=== PATIENT | male | born 1980 | race Caucasian/White ===

== ENCOUNTER 2020-11-29 20:00 | Outpatient (CLI) | payer OTHER, SELFPAY | END 2020-11-29 20:01 | disposition home or self-care (01) | LOC: SLEEP 11-30 08:54 | PROVIDERS: PCP Emergency Medicine Emergency Medical Services; Visit Provider Emergency Medicine Emergency Medical Services | DX: G47.30 Sleep apnea, unspecified (principal) | CPT/HCPCS: 95811 ==

== ENCOUNTER 2021-09-24 00:29 | Observation (INO) | payer OTHER, SELFPAY ==
[2021-09-24] VITALS (22 sets, daily range): BP systolic 91–124; BP diastolic 63–78; PULSE 69–103; RESP 16–20; TEMP 36.6–38.6; O2SAT 81–100; BMI 25.5
--- NOTE | 2021-09-24 00:49 | CTR_ITS ---
PROCEDURE INFORMATION: Exam: CT Abdomen And Pelvis With Contrast Exam date and time: 09/24/2021 12:49 AM Age: 41 years old Clinical indication: Abdominal pain; Localized; Right lower quadrant (rlq); Patient HX: Rlq pain with low grade fever. ; Additional info: Severe abd pain TECHNIQUE: Imaging protocol: Computed tomography of the abdomen and pelvis with contrast. Radiation optimization: All CT scans at this facility use at least one of these dose optimization techniques: automated exposure control; mA and/or kV adjustment per patient size (includes targeted exams where dose is matched to clinical indication); or iterative reconstruction. Contrast material: OMNI 300; Contrast volume: 95 ml; Contrast route: INTRAVENOUS (IV); COMPARISON: No relevant prior studies available. RADIATION DOSE METRICS: Total DLP (mGy-cm): 1230.05 FINDINGS: Liver: Normal. No mass. Gallbladder and bile ducts: Normal. No calcified stones. No ductal dilation. Pancreas: Normal. No ductal dilation. Spleen: Normal. No splenomegaly. Adrenal glands: Normal. No mass. Kidneys and ureters: Normal. No hydronephrosis. Stomach and bowel: Distal small bowel loops mildly distended with fluid. Mesenteric fat stranding. Negative for bowel wall pneumatosis. Appendix: Abnormally dilated appendix distended with fluid. Extensive periappendiceal fat stranding. Radiopaque appendicoliths in the proximal aspect. Intraperitoneal space: No loculated intraperitoneal fluid collection. Negative for pneumoperitoneum. Vasculature: Unremarkable. No abdominal aortic aneurysm. Lymph nodes: Unremarkable. No enlarged lymph nodes. Urinary bladder: Unremarkable as visualized. Reproductive: Unremarkable as visualized. Bones/joints: Unremarkable. No acute fracture. Soft tissues: Unremarkable. CT/CT abdomen pelvis w con* [id number] IMPRESSION: Positive for acute appendicitis. Radiation Dose CTDIVOL = (mGy): DLP = 1230.05 (mGy-cm)
--- NOTE | 2021-09-24 00:50 | ED_ITS ---
Documented by User: JUAN FRANCISCO Amos 09/24/21 01:43 HPI - Abdominal Pain General: Chief Complaint: Abdominal Pain Stated Complaint: RLQ Abd Pain Time Seen by Provider: 09/24/21 00:44 History of Present Illness: HPI narrative: Patient states he started with some abdominal pains yesterday in the evening after his Thanksgiving meal. He seemed like he did better throughout the night but then got a lot worse today started his upper abdomen and now it radiated down his right lower quadrant he says pain is 10/10 is never had anything like this before denies any abdominal surgeries are problems. Denies fever vomiting or diarrhea. He said he had 8-10 bowel movements yesterday evening. Small but normal. Does feel nauseous. MD elicited complaint: abdominal pain Pertinent past history: none Onset (ago): hour(s) Pain Consistency: constant Location: RLQ Severity: severe Quality: aching and fullness Radiation: epigastric Migration to: RLQ Exacerbating factors: movement Associated Symptoms: Reports nausea; Denies chills and fever(s) Review of Systems Const: Denies: fever(s), chills or body aches Eyes: Denies: change in vision or blurry vision ENMT: Denies: throat pain or nasal congestion Card: Denies: chest pain or dyspnea on exertion Resp: Denies: dyspnea, productive cough or non-productive cough GI: Reports: abdominal pain and nausea : Denies: difficulty urinating Musc: Denies: extremity pain Skin/Breast: Denies: rash Neuro: Denies: headache(s) Psych: Denies: anxiety or depression Talib/Lymph: Denies: easy bruising PFSH ED PFSH: Medical History Asthma Depression Surgical History History of tooth extraction (~2008) Family History Father Diabetes Mother Cancer Pancreatic [place] Social History Smoking and tobacco status: former smoker Second hand smoke exposure: No Alcohol intake: current Alcohol intake frequency: few times a month Alcohol type: beer Adopted: No Lives independently: Yes Household members: spouse Marital status: service: Yes branch: [employer] Physical Exam Const: COMMON NORMALS: no acute distress, average body habitus and patient oriented x3 HENMT: COMMON NORMALS: normocephalic HEAD & SCALP: normal to inspection and normocephalic FACE & SINUS: normal facial exam Eye: COMMON NORMALS: conjunctivae normal GENERAL EYE: appearance normal, both eyes and all related structures CONJUNCTIVA: Yes conjunctivae normal Neck/C-Spine: COMMON NORMALS: no JVD Chest: COMMONS NORMALS: normal inspection of the chest Resp: COMMON NORMALS: normal respiratory effort and clear to auscultation bilaterally AUSCULTATION: clear to auscultation bilaterally Cardio: COMMON NORMALS: no JVD, regular rate and regular rhythm RATE: regular rate RHYTHM: regular rhythm GI: INSPECTION: Yes normal to inspection AUSCULTATION: Yes Hypoactive bowel sounds present PALPATION: Yes Tenderness to palpation present (GI) Details: LLQ and RLQ PERCUSSION: tympanic to percussion Extremity: COMMON NORMALS: normal to inspection and full ROM Neuro: COMMON NORMALS: patient oriented x3 Course Vital Signs: Vital signs: Vital Signs Temperature 99.7 F H 09/24/21 00:37 Pulse Rate 88 09/24/21 01:13 Respiratory Rate 20 H 09/24/21 01:13 Blood Pressure 115/75 09/24/21 01:13 Pulse Oximetry 100 09/24/21 01:11 MDM - Abdominal Pain MDM Narrative: Medical decision making narrative: I spoke with Dr. Mccann asked we admit patient to observation. Says Sylvia is okay for antibiotic. Care transferred over to Dr. Coy. Lab Data: Labs: Lab Results 09/24/21 09/24/21 00:50 00:50 WBC 15.4 10^3/uL H 10 ^3/uL (4.0-10.0) RBC 5.41 10^6/uL H 10 ^6/uL (4.1-5.3) Hgb 15.6 g/dL g/dL (11.7-16.6) Hct 46.0 % % (42.0-52.0) MCV 85.0 fl fl (80-94) MCH 28.8 pg pg (28.0-34.0) MCHC 33.9 g/dL g/dL (30.0-36.0) RDW 12.4 % % (12.1-15.1) Plt Count 249 10^3/cmm 10^3 /cmm (130-400) MPV 9.8 fL fL (7.4-10.4) Neut % (Auto) 82.6 % % Lymph % (Auto) 10.3 % % [place] % (Auto) 6.2 % % Eos % (Auto) 0.2 % % Baso % (Auto) 0.2 % % Neut # (Auto) 12.72 10^3/uL H 1 0^3/uL (1.8-7.7) Lymph # (Auto) 1.6 10^3/uL 10^3/ uL (0.8-4.8) [place] # (Auto) 1.0 10^3/uL H 10^ 3/uL (0.2-0.9) Eos # (Auto) 0.0 10^3/uL 10^3/ uL (0.0-0.8) Baso # (Auto) 0.0 10^3/uL 10^3/ uL (0.0-0.1) Nucleated RBC % (a uto) 0 % % Nucleated RBCs # 0.0 /100WBC /100W BC Sodium 133 mmol/L L mmol /L (136-145) Potassium 3.7 mmol/L mmol/L (3.5-5.1) Chloride 97 mmol/L L mmol/ L (98-107) Carbon Dioxide 19 mmol/L L mmol/ L (22-29) Anion Gap 20.7 H (5-19) BUN 7 mg/dL mg/dL (6-20) Creatinine 1.0 mg/dL mg/dL (0.7-1.2) GFR Calculation 81.6 mL/min L mL/ min (90-130) Glucose 120 mg/dL H mg/dL (65-115) Calculated Osmolal ity 275 mOsm/kg L mOs m/kg (285-295) Calcium 8.8 mg/dL mg/dL (8.5-10.5) Total Bilirubin 0.6 mg/dL mg/dL (0.15-1.2) AST 11 U/L U/L (0-40) ALT 17 U/L U/L (0-41) Alkaline Phosphata se 21 IU/L L IU/L (40-130) Total Protein 6.5 g/dL L g/dL (6.6-8.7) Albumin 4.6 g/dL g/dL (3.5-5.2) Globulin 1.9 g/dL g/dL (1.3-4.6) Lipase 18 U/L U/L (13-60) Discharge Plan Discharge Prescriptions: No Action Zyrtec 10 mg capsule 10 mg PO DAILY RF: 0 naproxen 500 mg tablet 500 mg PO BID RF: 0 acetaminophen [Tylenol] 325 mg capsule 325 mg PO QID PRNRF: 0 albuterol sulfate 90 mcg/actuation aero powdr breath act w/sensor 2 inh INHALATION QID RF: 0 budesonide-formoterol [Symbicort] 160-4.5 mcg/actuation HFA aerosol inhaler 2 puff INHALATION BID RF: 0 silver sulfadiazine [Silvadene] 1 % cream 1 applic TOPICAL BID Qty: 50 RF: 0 Coding Level of Care Code ED Squeak Rattle And Leak Repairer for Chg Fwd Exam Comprehensive Documented by User: Samy Coy DO 09/24/21 02:18 HPI - Abdominal Pain General: Chief Complaint: Abdominal Pain Stated Complaint: RLQ Abd Pain Time Seen by Provider: 09/24/21 00:44 [facility] [place] ED PFSH: Medical History Asthma Depression Surgical History History of tooth extraction (~2008) Family History Father Diabetes Mother Cancer Pancreatic [place] Social History Smoking and tobacco status: former smoker Second hand smoke exposure: No Alcohol intake: current Alcohol intake frequency: few times a month Alcohol type: beer Adopted: No Lives independently: Yes Household members: spouse Marital status: service: Yes branch: [employer] Course Vital Signs: Vital signs: Vital Signs Temperature 99.7 F H 09/24/21 00:37 Pulse Rate 88 09/24/21 01:13 Respiratory Rate 20 H 09/24/21 01:13 Blood Pressure 115/75 09/24/21 01:13 Pulse Oximetry 100 09/24/21 01:11 MDM - Abdominal Pain MDM Narrative: Medical decision making narrative: This patient was originally seen by JUAN FRANCISCO Roa. I agree with his history, evaluation, and treatment. Lab Data: Labs: Lab Results 09/24/21 09/24/21 00:50 00:50 WBC 15.4 10^3/uL H 10 ^3/uL (4.0-10.0) RBC 5.41 10^6/uL H 10 ^6/uL (4.1-5.3) Hgb 15.6 g/dL g/dL (11.7-16.6) Hct 46.0 % % (42.0-52.0) MCV 85.0 fl fl (80-94) MCH 28.8 pg pg (28.0-34.0) MCHC 33.9 g/dL g/dL (30.0-36.0) RDW 12.4 % % (12.1-15.1) Plt Count 249 10^3/cmm 10^3 /cmm (130-400) MPV 9.8 fL fL (7.4-10.4) Neut % (Auto) 82.6 % % Lymph % (Auto) 10.3 % % [place] % (Auto) 6.2 % % Eos % (Auto) 0.2 % % Baso % (Auto) 0.2 % % Neut # (Auto) 12.72 10^3/uL H 1 0^3/uL (1.8-7.7) Lymph # (Auto) 1.6 10^3/uL 10^3/ uL (0.8-4.8) [place] # (Auto) 1.0 10^3/uL H 10^ 3/uL (0.2-0.9) Eos # (Auto) 0.0 10^3/uL 10^3/ uL (0.0-0.8) Baso # (Auto) 0.0 10^3/uL 10^3/ uL (0.0-0.1) Nucleated RBC % (a uto) 0 % % Nucleated RBCs # 0.0 /100WBC /100W BC Sodium 133 mmol/L L mmol /L (136-145) Potassium 3.7 mmol/L mmol/L (3.5-5.1) Chloride 97 mmol/L L mmol/ L (98-107) Carbon Dioxide 19 mmol/L L mmol/ L (22-29) Anion Gap 20.7 H (5-19) BUN 7 mg/dL mg/dL (6-20) Creatinine 1.0 mg/dL mg/dL (0.7-1.2) GFR Calculation 81.6 mL/min L mL/ min (90-130) Glucose 120 mg/dL H mg/dL (65-115) Calculated Osmolal ity 275 mOsm/kg L mOs m/kg (285-295) Calcium 8.8 mg/dL mg/dL (8.5-10.5) Total Bilirubin 0.6 mg/dL mg/dL (0.15-1.2) AST 11 U/L U/L (0-40) ALT 17 U/L U/L (0-41) Alkaline Phosphata se 21 IU/L L IU/L (40-130) Total Protein 6.5 g/dL L g/dL (6.6-8.7) Albumin 4.6 g/dL g/dL (3.5-5.2) Globulin 1.9 g/dL g/dL (1.3-4.6) Lipase 18 U/L U/L (13-60) Discharge Plan Discharge Prescriptions: No Action Zyrtec 10 mg capsule 10 mg PO DAILY RF: 0 naproxen 500 mg tablet 500 mg PO BID RF: 0 acetaminophen [Tylenol] 325 mg capsule 325 mg PO QID PRNRF: 0 albuterol sulfate 90 mcg/actuation aero powdr breath act w/sensor 2 inh INHALATION QID RF: 0 budesonide-formoterol [Symbicort] 160-4.5 mcg/actuation HFA aerosol inhaler 2 puff INHALATION BID RF: 0 silver sulfadiazine [Silvadene] 1 % cream 1 applic TOPICAL BID Qty: 50 RF: 0 Coding Level of Care Code ED Squeak Rattle And Leak Repairer for Chg Fwd Exam Comprehensive
[2021-09-24] MEDS: iohexol 300 mg/mL 100 mL Btl IV (01:02)
[2021-09-24 01:03] LABS: Basophils % 0.2 %; Eosinophils % 0.2 %; Hemoglobin 15.6 g/dL (11.7-16.6); Lymphocytes # 1.6 10^3/uL (0.8-4.8); Lymphocytes % 10.3 %; Mean Corpuscular HGB Conc 33.9 g/dL (30.0-36.0); Mean Corpuscular Hemoglobin 28.8 pg (28.0-34.0); Mean Platelet Volume 9.8 fL (7.4-10.4); Monocytes % 6.2 %; Neutrophils # 12.72 10^3/uL (1.8-7.7); Neutrophils % 82.6 %; Nucleated Red Blood Cells % 0 %; Platelet Count 249 10^3/cmm (130-400); Red Blood Count 5.41 10^6/uL (4.1-5.3); Red Cell Distribution Width 12.4 % (12.1-15.1); White Blood Count 15.4 10^3/uL (4.0-10.0)
[2021-09-24] MEDS: morphine 4 mg/mL SDV 1 mL IVP ×3 (01:14→06:45)
[2021-09-24] MEDS: sodium chloride 0.9% 1,000 ML 999 ML IV (01:14)
[2021-09-24] MEDS: ondansetron 2 mg/ML SDV 2 mL 4 MG IVP (01:15)
[2021-09-24 01:24] LABS: Alanine Aminotransferase 17 U/L (0-41); Albumin Level 4.6 g/dL (3.5-5.2); Alkaline Phosphatase 21 IU/L (40-130); Anion Gap 20.7 (5-19); Aspartate Amino Transferase 11 U/L (0-40); Blood Urea Nitrogen 7 mg/dL (6-20); Calcium 8.8 mg/dL (8.5-10.5); Carbon Dioxide 19 mmol/L (22-29); Chloride 97 mmol/L (98-107); Globulin 1.9 g/dL (1.3-4.6); Glomerular Filtration Rate 81.6 mL/min (90-130); Glucose 120 mg/dL (65-115); Lipase 18 U/L (13-60); Osmolality Calculated 275 mOsm/kg (285-295); Potassium 3.7 mmol/L (3.5-5.1); Sodium 133 mmol/L (136-145); Total Bilirubin 0.6 mg/dL (0.15-1.2); Total Protein 6.5 g/dL (6.6-8.7)
[2021-09-24] MEDS: piperacillin-tazobactam 3.375 GM in sodium chloride 0.9% (plus) 50 ML IV ×3 (02:15→16:12)
--- NOTE | 2021-09-24 03:33 | PC.NURSE ---
ADMIT NOTE Received to floor from ER via wheelchair. Unable to stand up straight with moving to bed. Is alert & oriented. Says pain started on evening and has gotten progressively worse. Says pain has settled into RLQ and is quite tender. Abdomen soft. Thought at first he had just eaten too much Thanksgiving dinner. Has had fever to 101 and nausea without vomiting. Does report several loose BM's this last evening. Is NPO and is aware of plan for OR today. Starting LR at 125ml/hr rate. Received dose of IV Zosyn in the ER. VS check done and RN completing admission assessment. Urinal provided and is aware of needed urine specimen
[2021-09-24] MEDS: lactated ringers 1,000 ML 125 ML IV (04:01)
--- NOTE | 2021-09-24 07:10 | PC.NURSE ---
OR OR here for pt
[2021-09-24] MEDS: fentaNYL 50 mcg/mL INJ 2mL IVP (07:41)
--- NOTE | 2021-09-24 07:44 | ANES.PREANE2 ---
Pre-Anesthetic Assessment Pre-Anesthetic Assessment: Height/Weight: Height 1.78 m Weight 80.739 kg Temp Pulse Resp BP Pulse Ox 101.3 F H 90 18 122/72 91 09/24/21 04:00 09/24/21 04:00 09/24/21 07:41 09/24/21 04:00 09/24/21 07:41 Preop Diagnosis: Appendicitis Proposed Procedure: Operation Date: 09/24/21 09:45 Proposed Procedures p Laparoscopic Appendectomy, possible Open(Not Applicable) - Alex Mccann MD Familial anesthetic complications: None Was Beta Alda taken within 24 hours: N/A Was Clonidine taken within 24 hours: N/A Last intake: Intake Last Liquid Date 09/23/21 Last Solid Date 09/23/21 Social: Social History: No alcohol and No tobacco Comment: former smoker Exam: Pre-Anes Outpt Exam: alert, oriented x 3, clear to auscultation bilaterally and regular rate & rhythm Airway: Cervical ROM: WNL MP: 2 Dentition: Other (no teeth) Pulmonary: Pulmonary: Asthma and COPD GI: GI: GERD Anesthetic Plan: ASA status: 2 Anesthesia: General Risk of > 500 ml blood loss (7ml/kg in children): No Meds/Allergies Current Medications: Current Medications Generic Name Dose Route Start Last Admin Trade Name Freq PRN Reason Stop Dose Admin Fentanyl 50 mcg 09/24/21 07:31 09/24/21 07:41 Fentanyl 50 Mcg/ Ml Inj 2ml IVP 50 mcg Q10M PRN Administration Preop Pain Lactated Ringer's 1,000 mls @ 125 m ls/hr 09/24/21 03:23 09/24/21 04:01 Lactated Ringers IV 125 mls/hr .Q8H ELIZABETH Administration Morphine Sulfate 4 mg 09/24/21 03:23 09/24/21 06:45 Morphine 4 Mg/Ml Sdv 1 Ml IVP 4 mg Q4H PRN Administration SEVERE PAIN PFSH Anesthesia PFSH: Medical History (Updated 09/24/21 @ 02:18 by Samy Coy DO) Asthma Depression Surgical History History of tooth extraction (~2008) Family History Father Diabetes Mother Cancer Pancreatic [place] Social History Smoking and tobacco status: former smoker Second hand smoke exposure: No Alcohol intake: current Alcohol intake frequency: few times a month Alcohol type: beer Adopted: No Lives independently: Yes Household members: spouse Marital status: service: Yes branch: [employer] Data Anesthesia CBC & Chem 7: 09/24/21 00:50 09/24/21 00:50 Other Labs: Laboratory Results - last 48 hr 09/24/21 09/24/21 00:50 00:50 WBC 15.4 H RBC 5.41 H Hgb 15.6 Hct 46.0 MCV 85.0 MCH 28.8 MCHC 33.9 RDW 12.4 Plt Count 249 MPV 9.8 Neut % (Auto) 82.6 Lymph % (Auto) 10.3 [place] % (Auto) 6.2 Eos % (Auto) 0.2 Baso % (Auto) 0.2 Neut # (Auto) 12.72 H Lymph # (Auto) 1.6 [place] # (Auto) 1.0 H Eos # (Auto) 0.0 Baso # (Auto) 0.0 Nucleated RBC % (auto) 0 Nucleated RBCs # 0.0 Sodium 133 L Potassium 3.7 Chloride 97 L Carbon Dioxide 19 L Anion Gap 20.7 H BUN 7 Creatinine 1.0 GFR Calculation 81.6 L Glucose 120 H Calculated Osmolality 275 L Calcium 8.8 Total Bilirubin 0.6 AST 11 ALT 17 Alkaline Phosphatase 21 L Total Protein 6.5 L Albumin 4.6 Globulin 1.9 Lipase 18 Cardiac Studies: No Data to Display
--- NOTE | 2021-09-24 07:51 | P.HP_ITS ---
Providers/Chief Complaint Admitting Physician: Sanna Patel Primary Care Provider: Willy Sanchez DO Chief Complaint: Severe ABD Pain History of Present Illness Niko Arrieta is a 41 year old male who presented to the ER last night with right lower quadrant pain. Patient states that he started having epigastric pain yesterday morning was during the course of the day moved to the right lower quadrant and was localized to the right lower quadrant. The pain is worse with movement. No radiation, no relieving factors. Patient also some fevers and some nausea but denies any vomiting. He had couple of loose bowel movements. No prior abdominal surgeries. Review of Systems General: Reports: 10 or more systems reviewed and unremarkable except in HPI and below Medications/Allergies Home Medications Medication Instructions Recorded Confirmed Last Taken Type acetaminophen 325 mg capsule 325 mg PO QID PRN 04/22/20 04/22/20 Unknown History albuterol sulfate 90 mcg/actuation 2 inh INHALATION QID 04/22/20 04/22/20 Unknown History breath activated powder inhaler,sensor budesonide-formoterol HFA 160 2 puff INHALATION BID 04/22/20 04/22/20 Unknown History mcg-4.5 mcg/actuation aerosol inhaler cetirizine 10 mg capsule 10 mg PO DAILY 04/22/20 04/22/20 Unknown History naproxen 500 mg tablet 500 mg PO BID 04/22/20 04/22/20 Unknown History silver sulfadiazine 1 % topical 1 applic TOPICAL BID #50 gm 04/22/20 04/22/20 Unknown Rx cream Allergies Allergy/AdvReac Type Severity Reaction Status Date / Time No Known Allergies Allergy Verified 04/22/20 11:29 PFSH Acute PFSH: Medical History Asthma Depression Surgical History History of tooth extraction (~2008) Family History Father Diabetes Mother Cancer Pancreatic [place] Social History Smoking and tobacco status: former smoker Second hand smoke exposure: No Alcohol intake: current Alcohol intake frequency: few times a month Alcohol type: beer Adopted: No Lives independently: Yes Household members: spouse Marital status: service: Yes branch: [employer] Vitals/I&O/Wt Last Vital Signs Temp 101.4 F H 09/24/21 07:12 Pulse 102 H 09/24/21 07:12 Resp 18 09/24/21 07:41 BP 124/75 09/24/21 07:12 Pulse Ox 91 09/24/21 07:41 09/23/21 09/24/21 09/24/21 22:59 06:59 14:59 Intake Total 1050 / 1050 Output Total 650 / 650 Balance 1050 / 1050 -650 / -650 Weight last 48 hrs Weight 178 lb Physical Exam Narrative: EXAM NARRATIVE: HEENT: Normocephalic Eye: Sclera /conjunctiva normal Respiratory and chest: Bilateral clear breath sounds on auscultation Cardiovascular: Normal S1 and S2 heart sounds Abdomen: Soft to palpation, tender right lower quadrant, voluntary guarding, no rigidity Neurological: Oriented to place person and time Skin: Intact, no lesions appreciated on gross exam Data : 09/24/21 00:50 09/24/21 00:50 A&P Assessment and plan (1) Acute appendicitis: 41-year-old male who presents generalized abdominal pain which localized to the right lower quadrant last night. This was associated with nausea, diarrhea and fevers. WBC-15.4 CT scan showed acute appendicitis Plan for laparoscopic possible open appendectomy Procedure, risks, benefits and alternatives have been discussed with the patient who wishes to proceed with surgery. Status: Acute Qualifiers: Acute appendicitis type: with localized peritonitis Appendicitis abscess presence: without abscess Appendicitis gangrene presence: without gangrene Appendicitis perforation presence: without perforation Qualified Code(s): K35.30 - Acute appendicitis with localized peritonitis, without perforation or gangrene Attestations Medical Necessity Statement*: Acute appendicitis Coding Level of Care Code Acute Commercial Ret[facility]cher [facility] Diagnoses Acute appendicitis K35.30 Acute appendicitis type: with localized peritonitis Appendicitis abscess presence: without abscess Appendicitis gangrene presence: without gangrene Appendicitis perforation presence: without perforation
--- NOTE | 2021-09-24 09:16 | PM.OP ---
Operative Report Date of procedure: September 24, 2021 Pre-op Diagnosis: Acute appendicitis Post-op Diagnosis: Acute suppurative appendicitis with moderate amount of purulent fluid along the right paracolic gutter and pelvis Procedure Done: Laparoscopic appendectomy Specimens removed/disposition: Appendix Surgeon: Alex Mccann Anesthesia: General Condition: stable Disposition: PACU Procedure: The patient was taken to the Operating Room and intubated under general anesthesia after antibiotic had been administered. Using a 15 blade, a 1-cm infraumbilical incision was made and using open Lu technique, the peritoneal cavity was entered. A 12mm port with balloon was placed and 14 mm of pneumoperitoneum was created and 10-mm 30 degree scope was introduced. Two separate 5mm ports were placed in the left and right lower quadrant under direct visualization. The appendix was noted in the right lower quadrant and appeared acutely inflamed. There was moderate amount of purulent fluid along the right paracolic gutter, pelvis which was irrigated and suctioned out. Using [place] forceps, an opening was made in the mesoappendix near the base of the appendix. An Endo KERRIE stapler 45mm long 3.5mm blue load was introduced to divide the appendix at it's base. Using electrocautery, the mesoappendix including the appendicular artery was divided. There was no bleeding noted and the staple line appeared intact. The right lower quadrant was irrigated with saline and an EndoCatch bag was introduced to remove the appendix. All three ports were removed under direct visualization and there was no bleeding noted on the port sites. 10 0.5% Marcaine was infiltrated at the port sites. The fascia at the umbilical port was closed using figure of eight 0-Vicryl sutures and subcutaneous tissue was approximated using 3-0 Vicryl and skin at all 3 port sites was closed using 4-0 Monocryl and Dermabond. 10cc of 0.5% Marcaine was infiltrated at the port sites.
[2021-09-24] MEDS: D5-NS 0.45% + KCL 20 mEq 20 MEQ/1,000 ML BAG 100 MEQ IV ×2 (10:20→21:35)
--- NOTE | 2021-09-24 11:00 | ANE.PACU2 ---
Inpatient post-anesthesia follow up: Airway intact: Yes Vital signs: Temperature 99.4 F Pulse Rate 85 Respiratory Rate 18 Blood Pressure 114/71 Pulse Oximetry 93 Oxygen Delivery Me thod Room Air Oxygen Flow Rate 6 Fraction of Inspir ed Oxygen Hydration adequate: Yes Nausea and vomiting: No Pain level: 2 Mental status: Baseline
[2021-09-24] MEDS: HYDROcodone-acetaminophen 5-325 mg Tablet 1 TAB PO ×2 (12:28→18:30)
[2021-09-24] MEDS: acetaminophen 325 mg Tablet 650 MG PO (17:33)
[2021-09-24] MEDS: sennosides-docusate Tablet 1 TAB PO (18:06)
[2021-09-25] MEDS: acetaminophen 325 mg Tablet 650 MG PO (00:44)
[2021-09-25] MEDS: piperacillin-tazobactam 3.375 GM in sodium chloride 0.9% (plus) 50 ML IV (00:44)
[2021-09-25 01:01] VITALS: BP 101/62; PULSE 79; RESP 18; TEMP 37.3; O2SAT 91
--- NOTE | 2021-09-25 04:25 | PC.NURSE ---
MANAGER UTILIZATION notified this Nurse that Pt O2 sat was 89%, Nurse went to Patient room to assess patient, Pt denied SOB or any distress, Pt stated he has asthma and requested his Albuterol inhaler at the bedside. PT used inhaler and and Nurse stayed at the bedside until O2 was 92% on RA, Lungs clear to auscultation.
[2021-09-25 04:59] VITALS: BP 107/68; PULSE 70; RESP 16; TEMP 36.9; O2SAT 87
[2021-09-25 05:23] LABS: Basophils % 0.2 %; Hematocrit 41.5 % (42.0-52.0); Hemoglobin 13.6 g/dL (11.7-16.6); Lymphocytes # 1.4 10^3/uL (0.8-4.8); Lymphocytes % 11.3 %; Mean Corpuscular HGB Conc 32.8 g/dL (30.0-36.0); Mean Corpuscular Volume 88.5 fl (80-94); Mean Platelet Volume 10.7 fL (7.4-10.4); Monocytes # 0.6 10^3/uL (0.2-0.9); Neutrophils # 9.97 10^3/uL (1.8-7.7); Neutrophils % 83.1 %; Nucleated Red Blood Cells % 0 %; Platelet Count 199 10^3/cmm (130-400); Red Blood Count 4.69 10^6/uL (4.1-5.3); Red Cell Distribution Width 13.2 % (12.1-15.1)
[2021-09-25] MEDS: D5-NS 0.45% + KCL 20 mEq 20 MEQ/1,000 ML BAG 100 MEQ IV (06:08)
[2021-09-25] MEDS: HYDROcodone-acetaminophen 5-325 mg Tablet 1 TAB PO (06:11)
[2021-09-25 07:49] VITALS: BP 114/71; PULSE 85; RESP 18; TEMP 37.4; O2SAT 93
--- NOTE | 2021-09-25 07:49 | P.DS_ITS ---
Discharge Providers Date of Admission: 09/24/21 03:07 Date of Discharge: September 25, 2021 Attending Provider at Admission: Sanna Patel Attending Provider at Discharge: Alex Mccann MD Primary Care Provider: Willy Sanchez DO Diagnoses at Discharge Discharge Diagnosis (1) Acute appendicitis: Status: Resolved Qualifiers: Acute appendicitis type: with localized peritonitis Appendicitis abscess presence: without abscess Appendicitis gangrene presence: without gangrene Appendicitis perforation presence: without perforation Qualified Code(s): K35.30 - Acute appendicitis with localized peritonitis, without perforation or gangrene Reason for Visit Reason for Visit: Severe ABD Pain Hospital Course Hospital Course Niko Arrieta is a 41 year old male who presented to the ER last night with right lower quadrant pain. Patient states that he started having epigastric pain yesterday morning was during the course of the day moved to the right lower quadrant and was localized to the right lower quadrant. The pain is worse with movement. No radiation, no relieving factors. Patient also some fevers and some nausea but denies any vomiting. He had couple of loose bowel movements. No prior abdominal surgeries. He was admitted to the hospital and underwent laparoscopic appendectomy. There was moderate amount of purulent fluid noted in the peritoneal cavity and therefore he was kept overnight for IV antibiotics. At time of discharge patient has been afebrile vital signs are stable and he is tolerating a liquid diet. His incision is clean dry and intact Discharge Data Data Completed and Pending: Completed Studies During Hospitalization Category Date Time Status CT abdomen pelvis w con* [id number] Stat Cat Scan 09/24/21 00:49 Completed Pending at discharge Category Date Time Status Pathology: Surgic al [PTH] Routine Pth 09/24/21 08:32 Ordered Labs from last 24 hours 09/25/21 04:17 WBC 12.0 H RBC 4.69 Hgb 13.6 Hct 41.5 L MCV 88.5 MCH 29.0 MCHC 32.8 RDW 13.2 Plt Count 199 MPV 10.7 H Neut % (Auto) 83.1 Lymph % (Auto) 11.3 [place] % (Auto) 5.0 Eos % (Auto) 0.0 Baso % (Auto) 0.2 Neut # (Auto) 9.97 H Lymph # (Auto) 1.4 [place] # (Auto) 0.6 Eos # (Auto) 0.0 Baso # (Auto) 0.0 Nucleated RBC % (a uto) 0 Nucleated RBCs # 0.0 Vitals: Last Vital Signs Temp 98.4 F 09/25/21 04:59 Pulse 70 09/25/21 04:59 Resp 16 09/25/21 04:59 BP 107/68 09/25/21 04:59 Pulse Ox 87 L 09/25/21 04:59 Discharge Plan Discharge Patient Disposition: Home Condition: Stable Prescriptions: New hydrocodone-acetaminophen 5-325 mg tablet 1 tab PO Q6H PRN (Reason: pain) Qty: 20 RF: 0 levofloxacin 750 mg tablet 750 mg PO DAILY 7 Days Qty: 7 RF: 0 metronidazole [Flagyl] 500 mg tablet 500 mg PO Q8H 7 Days Qty: 21 RF: 0 ondansetron HCl [Zofran] 4 mg tablet 4 mg PO Q6H PRN (Reason: nausea and vomiting) Qty: 20 RF: 0 sennosides-docusate sodium [Senna with Docusate Sodium] 8.6-50 mg tablet 1 tab-cap PO BID Qty: 30 RF: 0 Continued Zyrtec 10 mg capsule 10 mg PO DAILY RF: 0 naproxen 500 mg tablet 500 mg PO BID RF: 0 acetaminophen [Tylenol] 325 mg capsule 325 mg PO QID PRN (Reason: Pain) RF: 0 albuterol sulfate 90 mcg/actuation aero powdr breath act w/sensor 2 inh INHALATION QID PRN (Reason: Shortness Of Breath) RF: 0 budesonide-formoterol [Symbicort] 160-4.5 mcg/actuation HFA aerosol inhaler 2 puff INHALATION BID RF: 0 melatonin 3 mg Tablet 9 mg PO DAILY RF: 0 pantoprazole 20 mg Tablet,Delayed Release (Dr/Ec) 20 mg PO DAILY RF: 0 prazosin 5 mg Capsule 5 mg PO QPM RF: 0 rosuvastatin 10 mg Tablet 10 mg PO DAILY RF: 0 Discharge Orders: Discharge Order (Routine); Ordered 09/25/21 Ordered By: Alex Mccann Referrals: Alex Mccann MD [Physician] - 2 weeks Willy Sanchez DO [Primary Care Provider] - Patient Instructions: Opioid Safety Activity Restrictions/Additional Instructions: Diet Advance to normal diet as tolerated, increase fluid intake as much as possible. Activity Avoid strenuous activity for 2 weeks but continue with daily activities including walking as tolerated. Do not lift more than 10 pounds for 2 weeks Return to work/school You can return to work/ school whenever you feel ready as long as you don?t have to lift more than 10 pounds at work. If you have paperwork that needs to be completed for time off from work, please contact my office Driving You can resume driving once you stop using narcotic pain medications, and transition to non-opioid pain medications like Tylenol, Motrin, Aleve, etc. Medications Pain Take opioid pain medications as prescribed and transition to non-opioid pain medications like Tylenol, Motrin, Aleve etc. over the next few days. The goal of the pain medications is to make the pain bearable and not to be pain free since you recently had surgery. Resume all home medications after surgery as per the medication reconciliation list Nausea Nausea is common after surgery, take nausea medications as needed and stay on a liquid bland diet until nausea resolves. Constipation The combination of surgery, anesthesia and pain medications can result in constipation. Take stool softeners as prescribed. If you do not have a bowel movement in 3 days, please take an ypxo-mxq-pknelza laxative like MiraLAX to address the constipation. Shower It is ok to shower but avoid getting the wound wet for 48 hours after surgery. Do not soak in bathtub, swimming pool or hot tub for 2 weeks. Wound care If glue has been used on your incisions after surgery, the glue on the incision will peel slowly over the next two weeks. The stitches used are dissolvable and will not need to be removed. Do not apply antibiotics or other medications on the incision Problems with the wound: you can develop some redness around the incision from bruising after surgery. If there is increasing pain, redness, tenderness around the incision with or without drainage, please contact my office to rule out an infection. Sometimes the skin at the incisions can separate, resulting in reopening of the wound. Cover the wound with antibiotic cream and sterile dressings and contact suly ferguson. Contact physician Call the office at [phone] during office hours or go the Emergency Room ?Fever to 100.4 or greater ?Shaking chills ?Pain that increases over time ?Redness, warmth, or pus draining from incision sites ?Persistent nausea or inability to take in liquids Discharge Attestations Time Spent in Discharge Care*: less than 30 min Quality Metrics Clinical Quality Measures During this hospital stay, did patient experience: None Coding Level of Care Code Acute Chg FW DC note Diagnoses Acute appendicitis K35.30 Acute appendicitis type: with localized peritonitis Appendicitis abscess presence: without abscess Appendicitis gangrene presence: without gangrene Appendicitis perforation presence: without perforation
[2021-09-25] MEDS: sennosides-docusate Tablet 1 TAB PO (09:38)
[2021-09-25] MEDS: ondansetron 2 mg/ML SDV 2 mL 4 MG IVP (09:39)
[2021-09-25 10:40] VITALS: BP 114/71; PULSE 85; RESP 18; TEMP 37.4; O2SAT 93
== END 2021-09-25 10:30 | disposition home or self-care (01) ==
LOC: ER 02:20 → MEDSURG 03:11
PROVIDERS: Nurse Practitioner Family; Admitting Provider Hospitalist; Emergency Provider Emergency Medicine; PCP Emergency Medicine Emergency Medical Services; Visit Provider Surgery
PROC: 0DTJ4ZZ Resection of Appendix, Percutaneous Endoscopic Approach (ICD-10-PCS; CPT 44970; principal; 2021-09-24 09:25)
DX: K35.30 Acute appendicitis with localized peritonitis, without perforation or gangrene (principal); J44.9 Chronic obstructive pulmonary disease, unspecified; K21.9 Gastro-esophageal reflux disease without esophagitis; F32.A Depression, unspecified; Z87.891 Personal history of nicotine dependence
CPT/HCPCS: 44970; 36415; 74177; 80053; 83690; 85025; 88304; 96365; 96375; 96376; 99285; G0378; J1100; J2270; J2405; J2543; J2704; J2710; J3010; J3490; J7030; Q9967

== ENCOUNTER → 2022-06-26 14:14 | Outpatient (BNVA) | payer OTHER, SELFPAY | PROVIDERS: PCP Emergency Medicine Emergency Medical Services; Visit Provider Surgery | DX: K64.9 Unspecified hemorrhoids (principal) | CPT/HCPCS: 99203; 99213 ==

== ENCOUNTER 2022-07-18 09:38 | Day surgery (SDC) | payer OTHER, SELFPAY ==
[2022-07-17 12:12] VITALS: BMI 25.8
--- NOTE | 2022-07-18 10:19 | P.ANESASSM_ITS ---
Pre-Anesthetic Assessment Height/Weight: Height 1.78 m Weight 81.647 kg Preop Diagnosis: Acute appendicitis Operation Date: 07/18/22 12:15 Proposed Procedures p colonoscopy with exam under anesthesia with possible hemorrhoidectomy 96331,[id number],K64.9(Not Applicable) - Ludwin Alvarado MD s Possible Hemorroidectomy(Not Applicable) - Ludwin Alvarado MD Familial anesthetic complications: None Was Beta Alda taken within 24 hours: N/A Was Clonidine taken within 24 hours: N/A Last intake: 07/17/22 Social No alcohol and No tobacco Exam alert, oriented x 3, clear to auscultation bilaterally and regular rate & rhythm Airway Submandibular: within normal limits Cervical ROM: within normal limits Mallampati: Class I Dentition: full History/ROS No significant complaints Pulmonary Asthma and Sleep Apnea (Not treated ) CV/HEM None reported None reported Hepatic None reported GI Gastroesophageal Reflux Disease (Diet related ) Bleeding hemorrhoid Metabolic Hyperlipidemia Musc/skel None reported Neuropsych Depression Anesthetic Plan ASA status: 3 (42 year old male with untreated KIRSTEN, asthma, DLD, depression ) Anesthesia: Anesthesia Evaluation, General and MAC Other: I discussed with the patient risks, goals, and benefits of MAC and general anesthesia. We discussed spectrum of MAC anesthesia including conversion to general as well as possibility of recall of intraoperative stimuli including discomfort/pain. Patient agrees to proceed with MAC. Risk of > 500 ml blood loss (7ml/kg in children): No Medications/Allergies Home Medications Medication Instructions Recorded Confirmed Last Taken Type acetaminophen 325 mg capsule 325 mg PO QID PRN Pain 04/22/20 07/18/22 07/11/22 History (Tylenol) albuterol sulfate 90 mcg/actuation 2 inh inhalation QID PRN Shortness 04/22/20 07/18/22 07/18/22 08:00 History breath activated powder Of Breath inhaler,sensor budesonide-formoterol HFA 160 2 puff inhalation BID 04/22/20 07/18/22 07/18/22 08:00 History mcg-4.5 mcg/actuation aerosol inhaler (Symbicort) cetirizine 10 mg capsule (Zyrtec) 10 mg PO DAILY 04/22/20 07/18/22 07/17/22 History naproxen 500 mg tablet 500 mg PO BID 04/22/20 07/18/22 07/11/22 History melatonin 3 mg tablet 9 mg PO DAILY 09/24/21 07/18/22 07/17/22 History pantoprazole 20 mg tablet,delayed 20 mg PO DAILY 09/24/21 07/18/22 07/17/22 History release prazosin 5 mg capsule 5 mg PO QPM 09/24/21 07/18/22 07/17/22 History rosuvastatin 10 mg tablet 10 mg PO DAILY 09/24/21 07/18/22 07/17/22 History peg 3350-electrolytes 236 240 ml PO Q10M #4,000 mL 07/10/22 07/18/22 07/17/22 Rx gram-22.74 gram-6.74 gram-5.86 gram solution (Golytely) Allergies Allergy/AdvReac Type Severity Reaction Status Date / Time No Known Allergies Allergy Verified 07/18/22 10:24 [facility] Anesthesia Medical History (Updated 07/18/22 @ 11:24 by Pari Townsend DO) Asthma Depression KIRSTEN (obstructive sleep apnea) Does not use CPAP Surgical History History of tooth extraction (~2008) S/P laparoscopic appendectomy (09/24/21) Family History Father Diabetes Mother Cancer Pancreatic [place] Social History Smoking and tobacco status: former smoker Second hand smoke exposure: No Alcohol intake: current Alcohol intake frequency: few times a month Alcohol type: beer Adopted: No Lives independently: Yes Household members: spouse Marital status: service: Yes branch: [employer] Data Anesthesia Cardiac Studies: No Data to Display
[2022-07-18 10:27] VITALS: BP 156/93; PULSE 62; RESP 18; TEMP 36.6; O2SAT 96
[2022-07-18] MEDS: sodium chloride 0.9% 1,000 ML 30 ML IV (10:56)
[2022-07-18] MEDS: acetaminophen 1,000 MG/100 ML PIGGYBACK 400 MG IV (10:57)
--- NOTE | 2022-07-18 13:08 | W.PM.OPSUD ---
Surgery/Procedure H&P Update DATE OF PROCEDURE: July 18, 2022 DATE H&P PERFORMED: 06/26/22 H&P UPDATE INFORMATION: I have reviewed H&P completed within last 30 days, I have examined patient prior to procedure and No changes to prior documentation PREOP DIAGNOSIS: Acute appendicitis PRIMARY INDICATION FOR PROCEDURE: The same PLANNED PROCEDURE: Operation Date: 07/18/22 12:15 Proposed Procedures p colonoscopy with exam under anesthesia with possible hemorrhoidectomy [id number],[id number],K64.9(Not Applicable) - Ludwin Alvarado MD s Possible Hemorroidectomy(Not Applicable) - Ludwin Alvarado MD
[2022-07-18] MEDS: piperacillin-tazobactam 3.375 GM in sodium chloride 0.9% (plus) 50 ML IV (13:15)
--- NOTE | 2022-07-18 14:03 | PM.OP ---
Operative Report Date of procedure: July 18, 2022 Pre-op diagnosis: Preop Diagnosis bleeding per rectum Post-op findings: Rectosigmoid polyps and anterior skin tag Procedure done: 1-Colonoscopy with polypectomy using hot snare and application of Endo Clip x1 at the rectum 2-Examination under anesthesia with excision of anterior skin tag Implants: Surgicel and Xeroform Specimens removed/disposition: Multiple rectal polyps Anterior skin tag Surgeon: Ludwin Alvarado MD Anesthesia: MAC (OPTICS TECHNICAL OFFICER Benny Poe and OPTICS TECHNICAL OFFICER Enrrique student) Estimated blood loss (mL): 5 Procedure: Patient was identified in the holding area, was taken to the OR placed first in supine position,IV antibiotics were given with induction time-out was done verifying the patient's name, date of , and procedure, all were in agreement. General anesthetic was administered by the anesthesia provider, patient was placed in left lateral position SCDs were on and functioning. And all pressure points were padded Perianal examination showed anterior skin tag ,otherwise no evidence of clinically palpable anal masses. Following that a digital rectal examination was done was normal, the colonoscope was then introduced via the anus under direct visualization, all the way to the proximal to the cecum, a polyp was appreciated at the distal sigmoid and a hot snare polypectomy was applied but was not retrieved. 3 additional polyps were found in the rectum and a hot snare was used followed by Endo Clip x1. The prep was adequate. Rectal polyps were retrieved. I was able to reach all the way to the cecum no other polyps were identified At this point the scope was then retrieved back, gas was deflated on the way out.Retroflex was done at the end showing showed no evidence of internal hemorrhoids, time to retrieve the scope from the cecum to the anus exceeded 6 minutes Prep and drape of the perineum was done under the usual sterile technique All pressure points were padded,Injection of 10 mL of Exparel at the site of the anterior skin A lubricated self-retaining proctoscope was inserted, no evidence of other pathology. Attention was paid now to the anterior skin tag , were application of hemostat that point,dissection was carried by using the harmonic scalpel, excised tissues were sent for permanent pathology, followed by running 3-0 chromic catgut. Hemostasis was achieved, and a piece of Surgicel and Xeroform was then applied ABDs were applied followed by surgical pants Patient was repositioned to supine position, counts of instruments,needles and sponges were completed at the end of the procedure. Recommend to obtain a surveillance colonoscopy in 3 years I was present for the whole entire procedure
[2022-07-18 14:11] VITALS: BP 103/71; PULSE 96; RESP 16; TEMP 36.4; O2SAT 96
[2022-07-18 14:16] VITALS: BP 109/76; PULSE 66; RESP 16; O2SAT 94
[2022-07-18 14:21] VITALS: BP 119/80; PULSE 63; RESP 16; TEMP 36.2; O2SAT 98
[2022-07-18 14:32] VITALS: BP 110/86; PULSE 60; RESP 18; TEMP 36.3; O2SAT 97
[2022-07-18 14:42] VITALS: BP 116/83; PULSE 55; RESP 18; TEMP 36.7; O2SAT 98
--- NOTE | 2022-07-18 16:19 | ANE.PACU2 ---
Inpatient post-anesthesia follow up: Airway intact: Yes Vital signs: Temperature 98.0 F Pulse Rate 55 Respiratory Rate 18 Blood Pressure 116/83 Pulse Oximetry 98 Oxygen Delivery Me thod Room Air Oxygen Flow Rate 6 Fraction of Inspir ed Oxygen Hydration adequate: Yes Nausea and vomiting: No Pain level: 1 Mental status: Baseline
== END 2022-07-18 14:58 | disposition home or self-care (01) ==
PROVIDERS: PCP Emergency Medicine Emergency Medical Services; Visit Provider Surgery
PROC: 0DJD8ZZ Inspection of Lower Intestinal Tract, Via Natural or Artificial Opening Endoscopic (ICD-10-PCS; CPT 45378; principal; 2022-07-18 12:05)
PROC: (CPT 45385; 2022-07-18 12:05)
DX: K62.5 Hemorrhage of anus and rectum (principal); K21.9 Gastro-esophageal reflux disease without esophagitis; E78.5 Hyperlipidemia, unspecified; F32.A Depression, unspecified; G47.33 Obstructive sleep apnea (adult) (pediatric); M19.90 Unspecified osteoarthritis, unspecified site; Z87.891 Personal history of nicotine dependence
CPT/HCPCS: 45385; 46220; 88304; 88305; C9290; J2543; J2704; J3490; J7030

== ENCOUNTER → 2022-07-26 14:15 | Outpatient (BNVA) | payer OTHER, SELFPAY | PROVIDERS: PCP Emergency Medicine Emergency Medical Services; Visit Provider Surgery | DX: Z09 Encounter for follow-up examination after completed treatment for conditions other than malignant neoplasm (principal); K64.9 Unspecified hemorrhoids; K63.5 Polyp of colon | CPT/HCPCS: 99024 ==

== ENCOUNTER → 2022-09-06 10:01 | Outpatient (BNVA) | payer OTHER, SELFPAY | PROVIDERS: PCP Emergency Medicine Emergency Medical Services; Visit Provider Surgery | DX: Z09 Encounter for follow-up examination after completed treatment for conditions other than malignant neoplasm (principal) | CPT/HCPCS: 99024 ==

== ENCOUNTER → 2022-11-07 10:30 | Outpatient (BNVA) | payer OTHER, SELFPAY | PROVIDERS: PCP Emergency Medicine Emergency Medical Services; Referring Provider Emergency Medicine Emergency Medical Services; Visit Provider Specialist | DX: R20.0 Anesthesia of skin (principal); R20.2 Paresthesia of skin | CPT/HCPCS: 95908; 95909 ==

== ENCOUNTER → 2022-11-20 13:00 | Outpatient (BNVA) | payer OTHER, SELFPAY | PROVIDERS: PCP Emergency Medicine Emergency Medical Services; Referring Provider Emergency Medicine Emergency Medical Services; Visit Provider Student in an Organized Health Care Education/Training Program | DX: M77.10 Lateral epicondylitis, unspecified elbow (principal); R20.0 Anesthesia of skin; R20.2 Paresthesia of skin | CPT/HCPCS: 73070; 99204 ==

== ENCOUNTER → 2024-01-15 08:26 | Outpatient (BNVA) | payer OTHER, SELFPAY | PROVIDERS: PCP Emergency Medicine Emergency Medical Services; Referring Provider Emergency Medicine Emergency Medical Services; Visit Provider Surgery | DX: D17.9 Benign lipomatous neoplasm, unspecified (principal) | CPT/HCPCS: 99203 ==

== ENCOUNTER 2024-01-28 07:14 | Day surgery (SDC) | payer OTHER, SELFPAY ==
[2024-01-28] VITALS (10 sets, daily range): BP systolic 108–122; BP diastolic 64–82; PULSE 59–74; RESP 12–18; TEMP 36.2–36.3; O2SAT 91–100; BMI 24.0
[2024-01-28] MEDS: sodium chloride 0.9% 1,000 ML 30 ML IV (07:50)
--- NOTE | 2024-01-28 08:36 | ANES.PREANE2 ---
Pre-Anesthetic Assessment Height/Weight: Height 1.78 m Weight 76.204 kg Temp Pulse Resp BP Pulse Ox O2 Del Method 97.1 F L 62 18 112/71 98 Room Air 01/28/24 07:36 01/28/24 07:36 01/28/24 07:36 01/28/24 07:36 01/28/24 07:36 01/28/24 07:36 Operation Date: 01/28/24 09:20 Proposed Procedures p Excision Mass/Lesion/Cyst Lower Extremit/excision of right gluteal mass(Right) - Orlando Lopez MD Familial anesthetic complications: None Was Beta Alda taken within 24 hours: N/A Was Clonidine taken within 24 hours: N/A Last intake: Intake Last Liquid Date 01/27/24 Last Liquid Time 22:00 Last Solid Date 01/27/24 Last Solid Time 20:00 Social former smoker Exam alert, oriented x 3, clear to auscultation bilaterally and regular rate & rhythm Airway Mallampati: Class I Dentition: other Pulmonary Asthma, Chronic Obstructive Pulmonary Disease and Sleep Apnea GI Gastroesophageal Reflux Disease Anesthetic Plan ASA status: 3 Anesthesia: Choice Risk of > 500 ml blood loss (7ml/kg in children): No Medications/Allergies Home Medications Medication Instructions Recorded Confirmed Last Taken Type acetaminophen 325 mg capsule 325 mg PO QID PRN Pain 04/22/20 01/25/24 01/25/24 History (Tylenol) albuterol sulfate 90 mcg/actuation 2 inh inhalation QID PRN Shortness 04/22/20 01/25/24 01/28/24 History breath activated powder Of Breath inhaler,sensor cetirizine 10 mg capsule (Zyrtec) 10 mg PO DAILY 04/22/20 01/25/24 01/25/24 History pantoprazole 20 mg tablet,delayed 20 mg PO DAILY 09/24/21 01/25/24 01/25/24 History release amlodipine 2.5 mg tablet 2.5 mg PO BEDTIME 01/15/24 01/25/24 01/26/24 History bupropion HCl 150 mg 24 hr tablet, 150 mg PO DAILY 01/15/24 01/25/24 01/25/24 History extended release cholecalciferol (vitamin D3) 50 50 mcg PO DAILY 01/15/24 01/25/24 01/25/24 History mcg (2,000 unit) tablet (Vitamin D3) escitalopram oxalate 20 mg tablet 20 mg PO DAILY 01/15/24 01/25/24 01/25/24 History fluticasone 100 mcg-salmeterol 50 100 inh inhalation DAILY 01/15/24 01/25/24 01/28/24 History mcg/dose blistr powdr for inhalation (Wixela Inhub) fluticasone propionate 50 50 mcg intranasal DAILY 01/15/24 01/25/24 01/25/24 History mcg/actuation nasal spray,suspension (Aller-Kyle) hydroxyzine HCl 10 mg tablet 10 mg PO TID BLOOD PRESSURE 01/15/24 01/25/24 Unknown History rosuvastatin 40 mg tablet 40 mg PO DAILY 01/15/24 01/28/24 01/26/24 History trazodone 100 mg tablet 100 mg PO ONCE 01/15/24 01/25/24 01/27/24 History tiotropium 2.5 mcg-olodaterol 2.5 2 puff inhalation DAILY 01/28/24 01/28/24 01/28/24 History mcg/actuation mist for inhalation Allergies Allergy/AdvReac Type Severity Reaction Status Date / Time bee venom protein (honey bee) Allergy Severe ALGY-Anaphy Verified 01/25/24 15:18 laxis Current Medications Generic Name Dose Route Start Last Admin Trade Name Freq PRN Reason Stop Dose Admin Sodium Chloride 1,000 mls @ 30 mls/hr 01/28/24 07:30 01/28/24 07:50 Sodium Chloride 0.9% IV 01/29/24 07:29 30 mls/hr .Q24H ELIZABETH Administration PFSH Anesthesia Medical History Lateral epicondylitis of elbow KIRSTEN (obstructive sleep apnea) Does not use CPAP Bleeding hemorrhoid Depression Asthma Surgical History (Updated 01/15/24 @ 08:38 by EDITA [place]) S/P laparoscopic appendectomy (09/24/21) History of tooth extraction (~2008) Family History Father Diabetes Mother Cancer Pancreatic [place] Social History Smoking and tobacco/nicotine status: former use of tobacco/nicotine Second hand smoke exposure: No Alcohol intake: current Alcohol intake frequency: few times a month Alcohol type: beer Substance/Drug Use: never Adopted: No Lives independently: Yes Household members: spouse Marital status: service: Yes branch: [employer] Data Anesthesia Cardiac Studies: No Data to Display
--- NOTE | 2024-01-28 08:59 | W.PM.OPSUD ---
Surgery/Procedure H&P Update DATE OF PROCEDURE: January 28, 2024 DATE H&P PERFORMED: 01/15/24 H&P UPDATE INFORMATION: I have reviewed H&P completed within last 30 days, I have examined patient prior to procedure, No changes to prior documentation and H[place] in [facility] [place] on date indicated PLANNED PROCEDURE: Operation Date: 01/28/24 09:20 Proposed Procedures p Excision Mass/Lesion/Cyst Lower Extremit/excision of right gluteal mass(Right) - Orlando Lopez MD
[2024-01-28] MEDS: ceFAZolin 2,000 MG in sodium chloride 0.9% (plus) 50 ML 100 MG IV (09:18)
[2024-01-28] MEDS: BUPivacaine 0.25% INJ 10 mL INJECTION (09:56)
[2024-01-28] MEDS: lidocaine-epi 1% 20 mL INJ 10 ML INJECTION (09:57)
--- NOTE | 2024-01-28 10:15 | PM.OP ---
Operative Report Date of procedure: January 28, 2024 Pre-op diagnosis: Right gluteal mass Post-op diagnosis: Right gluteal sebaceous cyst Post-op findings: There was a 2 x 2 centimeter right gluteal sebaceous cyst Procedure done: Excision of right gluteal mass Specimens removed/disposition: Right gluteal sebaceous cyst Surgeon: Orlando Lopez MD Bowling Ball Grader: MARTA OR STaff Estimated blood loss: 5 Complications: none Brief History: 43-year-old male with history of right gluteal mass that has been increasing in size over the last couple of years. He presented for excision after discussion of risk benefits as documented in my preop note we decided to proceed. Procedure: Patient was brought into the OR. General esthesia was given. He was placed in the prone position. The skin was prepped and draped in the usual sterile fashion. Timeout was conducted. On the right gluteus there was a 2 x 2 centimeter area that was marked in the preoperative evaluation. I proceeded to infiltrate the area with local anesthesia. I then made the 2.5 cm incision following Jennie lines. The incision was deepened to the subcutaneous tissue. Immediately after accessing the subcutaneous tissue a white shiny capsule was noted. With the use of a hemostat I proceeded to circumferentially dissect this capsule. During dissection a small opening was made to the capsule and sebaceous material was evacuated. With careful sharp dissection I was able to completely excise the capsule from the surrounding tissues. The specimen was passed for pathology. The wound was evaluated for possible residual capsule and none was noted. I then proceeded to irrigate the wound with copious amount of saline. After this hemostasis was obtained. The wound was then closed in layers using #3-0 Vicryl for the subcutaneous tissue and #4 Monocryl for the skin. Dermabond was applied. On top of the Dermabond a compressive dressing was applied. At the end of the procedure all counts were correct, the patient tolerated well the procedure and was transferred to the PACU in stable condition.
--- NOTE | 2024-01-28 11:35 | ANE.PACU2 ---
Inpatient post-anesthesia follow up: Airway intact: Yes Vital signs: Temperature 97.4 F Pulse Rate 60 Respiratory Rate 18 Blood Pressure 113/72 Pulse Oximetry 100 Oxygen Delivery Me thod Room Air Oxygen Flow Rate Fraction of Inspir ed Oxygen Hydration adequate: Yes Nausea and vomiting: No Pain level: 1 Mental status: Baseline
== END 2024-01-28 11:36 | disposition home or self-care (01) ==
PROVIDERS: PCP Emergency Medicine Emergency Medical Services; Visit Provider Surgery
PROC: (CPT 11402; principal; 2024-01-28 09:10)
DX: L72.3 Sebaceous cyst (principal); Z87.891 Personal history of nicotine dependence; J44.9 Chronic obstructive pulmonary disease, unspecified; G47.30 Sleep apnea, unspecified; K21.9 Gastro-esophageal reflux disease without esophagitis; G47.33 Obstructive sleep apnea (adult) (pediatric)
CPT/HCPCS: 11402; 12031; 88307; J0690; J2250; J2704; J2710; J3490; J7030

== ENCOUNTER → 2024-02-19 09:45 | Outpatient (BNVA) | payer OTHER, SELFPAY | PROVIDERS: PCP Emergency Medicine Emergency Medical Services; Visit Provider Surgery | DX: Z09 Encounter for follow-up examination after completed treatment for conditions other than malignant neoplasm (principal) | CPT/HCPCS: 99024 ==

== ENCOUNTER → 2025-08-11 08:16 | Outpatient (BNVA) | payer OTHER, SELFPAY | PROVIDERS: PCP Emergency Medicine Emergency Medical Services; Visit Provider Surgery | DX: Z12.11 Encounter for screening for malignant neoplasm of colon (principal); R03.0 Elevated blood-pressure reading, without diagnosis of hypertension | CPT/HCPCS: 99214 ==

== ENCOUNTER 2025-08-20 08:44 | Day surgery (SDC) | payer OTHER, SELFPAY ==
--- NOTE | 2025-08-20 08:53 | P.HPUD_ITS ---
Surgery/Procedure H&P Update DATE OF PROCEDURE: August 20, 2025 DATE H&P PERFORMED: 08/11/25 H&P UPDATE INFORMATION: I have reviewed H&P completed within last 30 days, I have examined patient prior to procedure, No changes to prior documentation, H&P is in [facility] EMR on date indicated and Risks and benefits of the procedure reviewed PLANNED PROCEDURE: Operation Date: 08/20/25 11:00 Proposed Procedures p Colonoscopy [id number] G0121 Z12.11(Not Applicable) - Orlando Lopez MD
[2025-08-20 08:58] VITALS: BP 156/107; PULSE 87; RESP 16; TEMP 36.3; O2SAT 99; BMI 21.2
--- NOTE | 2025-08-20 09:46 | ANES.PREANE2 ---
Pre-Anesthetic Assessment Height/Weight: Height 1.78 m Weight 67.132 kg Temp Pulse Resp BP Pulse Ox O2 Del Method 97.3 F L 87 16 156/107 99 Room Air 08/20/25 08:58 08/20/25 08:58 08/20/25 08:58 08/20/25 08:58 08/20/25 08:58 08/20/25 08:58 Preop Diagnosis: screen Operation Date: 08/20/25 11:00 Proposed Procedures p Colonoscopy [id number] Z12.11(Not Applicable) - Orlando Lopez MD Familial anesthetic complications: none Was Beta Alda taken within 24 hours: N/A Was Clonidine taken within 24 hours: N/A Last intake: Intake Last Liquid Date 08/19/25 Last Liquid Time 23:30 Last Solid Date 08/18/25 Last Solid Time 18:00 Social Alcohol and Tobacco vape Exam alert, oriented x 3, clear to auscultation bilaterally and regular rate & rhythm Airway Cervical ROM: within normal limits Mallampati: Class II Dentition: full Pulmonary Sleep Apnea CV/HEM None reported None reported Hepatic None reported GI None reported Metabolic None reported Musc/skel None reported Neuropsych None reported Anesthetic Plan ASA status: 2 Anesthesia: MAC Risk of > 500 ml blood loss (7ml/kg in children): No Medications/Allergies Home Medications ?Medication ?Instructions ?Recorded ?Confirmed ?Last Taken ?Type acetaminophen 325 mg capsule 650 mg PO QID PRN Pain 04/22/20 08/20/25 08/19/25 History (Tylenol) albuterol sulfate 90 mcg/actuation 2 inh inhalation QID PRN Shortness 04/22/20 08/20/25 08/20/25 History breath activated powder Of Breath inhaler,sensor cetirizine 10 mg capsule (Zyrtec) 10 mg PO DAILY 04/22/20 08/20/25 08/19/25 History pantoprazole 20 mg tablet,delayed 20 mg PO DAILY 09/24/21 08/20/25 08/19/25 History release amlodipine 2.5 mg tablet 2.5 mg PO BEDTIME 01/15/24 08/20/25 08/19/25 History bupropion HCl 150 mg 24 hr tablet, 150 mg PO DAILY 01/15/24 08/20/25 08/19/25 History extended release cholecalciferol (vitamin D3) 50 50 mcg PO DAILY 01/15/24 08/20/25 08/19/25 History mcg (2,000 unit) tablet (Vitamin D3) escitalopram oxalate 20 mg tablet 20 mg PO DAILY 01/15/24 08/20/25 08/19/25 History fluticasone 100 mcg-salmeterol 50 100 inh inhalation DAILY 01/15/24 08/20/25 08/19/25 History mcg/dose blistr powdr for inhalation (Wixela Inhub) fluticasone propionate 50 50 mcg intranasal DAILY 01/15/24 08/20/25 08/19/25 History mcg/actuation nasal spray,suspension (Aller-Kyle) hydroxyzine HCl 10 mg tablet 10 mg PO TID PRN BLOOD PRESSURE 01/15/24 08/20/25 Unknown History rosuvastatin 40 mg tablet 40 mg PO DAILY 01/15/24 08/20/25 08/19/25 History trazodone 100 mg tablet 100 mg PO BEDTIME 01/15/24 08/20/25 08/17/25 History tiotropium 2.5 mcg-olodaterol 2.5 2 puff inhalation DAILY 01/28/24 08/20/25 08/19/25 History mcg/actuation mist for inhalation (Stiolto Respimat) celecoxib 100 mg capsule (Celebrex) 100 mg PO BID 08/11/25 08/20/25 08/19/25 History Allergies Allergy/AdvReac Type Severity Reaction Status Date / Time bee venom protein (honey bee) Allergy Severe ALGY-Anaphy Verified 08/11/25 08:21 laxis Current Medications Generic Name Dose Route Start Last Admin Trade Name Freq PRN Reason Stop Dose Admin Sodium Chloride 1,000 mls @ 15 mls/hr 08/20/25 08:51 08/20/25 09:07 Sodium Chloride 0.9% IV 08/21/25 08:50 15 mls/hr .Q24H PRN Administration COLONOSCOPY FLUIDS PFSH Anesthesia Medical History Lateral epicondylitis of elbow KIRSTEN (obstructive sleep apnea) Does not use CPAP Bleeding hemorrhoid Depression Asthma Surgical History S/P laparoscopic appendectomy (09/24/21) History of tooth extraction (~2008) Family History Father Diabetes Mother Cancer Pancreatic CA Social History Smoking and tobacco/nicotine status: never used tobacco/nicotine Second hand smoke exposure: No Alcohol intake: current Alcohol intake frequency: few times a month Alcohol type: beer Substance/Drug Use: never Adopted: No Lives independently: Yes Household members: spouse Marital status: service: Yes branch: [employer]
[2025-08-20 10:34] VITALS: BP 101/73; PULSE 77; RESP 18; TEMP 36.1; O2SAT 97
[2025-08-20 10:50] VITALS: BP 116/82; PULSE 76; RESP 16; TEMP 36.5; O2SAT 98
== END 2025-08-20 11:10 | disposition home or self-care (01) ==
PROVIDERS: PCP Emergency Medicine Emergency Medical Services; Visit Provider Surgery
PROC: 0DJD8ZZ Inspection of Lower Intestinal Tract, Via Natural or Artificial Opening Endoscopic (ICD-10-PCS; CPT 45378; principal; 2025-08-20 11:00)
DX: Z12.11 Encounter for screening for malignant neoplasm of colon (principal); D12.4 Benign neoplasm of descending colon; F32.A Depression, unspecified; J45.909 Unspecified asthma, uncomplicated; K21.9 Gastro-esophageal reflux disease without esophagitis; G47.33 Obstructive sleep apnea (adult) (pediatric)
CPT/HCPCS: 45385; 88305; J2704; J3010; J7030

== ENCOUNTER → 2025-09-02 09:24 | Outpatient (BNVA) | payer OTHER, SELFPAY | PROVIDERS: PCP Emergency Medicine Emergency Medical Services; Visit Provider Surgery | DX: Z09 Encounter for follow-up examination after completed treatment for conditions other than malignant neoplasm (principal); R03.0 Elevated blood-pressure reading, without diagnosis of hypertension | CPT/HCPCS: 99213 ==